=== PATIENT | female | born 1930 | race Caucasian/White ===

== ENCOUNTER 2019-01-19 16:10 | Emergency (ER) | payer MEDICARE ==
[~2019-01-19] VITALS: Ht 157.5 cm; Wt 42.0 kg
[~2019-01-19 16:10] MED LIST: AMIO200T40 PO; ATOR20TA PO; CALC-729 PO; DILT240C94 PO; LOSA50TA64 PO; MAGN400C PO; MULT1TAB74 PO; OMEG1CAP54 PO; TERI2.4P SUBCUT; WARF2.5T PO
[2019-01-19] MEDS ORDERED: phytonadione inj. 10 MG in normal saline 100ml IV soln 99 ML IV ONE (17:05)
[2019-01-19] MEDS ORDERED: HUMAN PROTHROMBIN COMPLEX PCC IV ONE (17:05)
[2019-01-19] MEDS ORDERED: LIDOcaine 1% w/epiNEPHrine 1:200,000 30ml vial IM ONE (17:20)
[2019-01-19] MEDS ORDERED: TETanus/Pertussis (Acell)/Diphther VAC/PF (Tdap-Adult) 0.5ml syringe IM ONE (17:20)
[2019-01-19 17:22] LABS: BASOPHILS # (AUTO) 0.1 X10'3 (0-0.2); BASOPHILS % (AUTO) 0.5 % (0-1); EOSINOPHILS % (AUTO) 0.1 % (0-6); HEMATOCRIT 36.5 % (35.0-45.0); HEMOGLOBIN 12.2 g/dl (12.0-16.0); LYMPHOCYTES # (AUTO) 0.3 X10'3 (1.1-4.8); MEAN CORPUSCULAR HEMOGLOBIN 31.2 PG (27.0-31.0); MEAN CORPUSCULAR HGB CONC 33.4 g/dL (33.0-36.5); MEAN CORPUSCULAR VOLUME 93.5 FL (78-98); MONOCYTES # (AUTO) 0.8 X10'3 (0-0.9); MONOCYTES % (AUTO) 6.8 % (2-12); NEUTROPHILS # (AUTO) 10.2 X10'3 (1.8-7.7); NEUTROPHILS % (AUTO) 89.6 % (42-75); PLATELET COUNT 228 X10'3 (140-440); RED CELL DISTRIBUTION WIDTH 14.4 % (11.5-14.5); WHITE BLOOD COUNT 11.4 X10'3 (4.5-11.0)
[2019-01-19 17:38] LABS: ALANINE AMINOTRANSFERASE 247 U/L (12-78); ALBUMIN 4.4 G/DL (3.4-5.0); ALBUMIN/GLOBULIN RATIO 1.2 (1.1-1.5); ALKALINE PHOSPHATASE 76 IU/L (46-116); ANION GAP 10 (8-16); ASPARTATE AMINO TRANSFERASE 159 U/L (10-37); BILIRUBIN,TOTAL 0.4 MG/DL (0.1-1.0); BLOOD UREA NITROGEN 40 MG/DL (7-18); BUN/CREATININE RATIO 13.7 (6.6-38.0); CALCIUM 9.9 MG/DL (8.5-10.1); CHLORIDE 100 MMOL/L (99-107); CREATININE 2.92 MG/DL (0.40-0.90); GLUCOSE 152 MG/DL (70-104); POTASSIUM 4.6 MMOL/L (3.5-5.1); SODIUM 136 MMOL/L (135-145); TOTAL CARBON DIOXIDE 25.6 MMOL/L (24-32); TOTAL PROTEIN 8.2 G/DL (6.4-8.2); eGFR 15 ML/MIN
[2019-01-19 17:45] LABS: PROTHROMBIN TIME 37.7 SECONDS (9.0-12.0)
[2019-01-19 17:46] LABS: PARTIAL THROMBOPLASTIN TIME 43 SECONDS (22-32)
[2019-01-19] MEDS ORDERED: ondansetron/PF 4mg/2ml inj IV ONE (18:00)
--- NOTE | 2019-01-19 18:14 | NUR ---
REPORT GIVEN AT THIS TIME TO RUBI PAREDES AT [facility] AT THIS TIME. ALL QUESTIONS AND CONCERNS ADDRESSED, PATIENT TRANSPORTED VIA EMS, NO SIGNS OF DISTRESS NOTED UPON DISCHARGE. .
[2019-01-19 18:23] VITALS: BP 168/71
== END 2019-01-19 18:33 | disposition short-term general hospital (02) ==
LOC: ER 16:11
DX: S06.5X0A Traumatic subdural hemorrhage without loss of consciousness, initial encounter (principal); S01.01XA Laceration without foreign body of scalp, initial encounter; S43.401A Unspecified sprain of right shoulder joint, initial encounter; D68.9 Coagulation defect, unspecified; I48.91 Unspecified atrial fibrillation; E78.00 Pure hypercholesterolemia, unspecified; I10 Essential (primary) hypertension; Z90.49 Acquired absence of other specified parts of digestive tract; Z90.710 Acquired absence of both cervix and uterus; Z88.8 Allergy status to other drugs, medicaments and biological substances; Z79.01 Long term (current) use of anticoagulants; Z79.899 Other long term (current) drug therapy; W01.198A Fall on same level from slipping, tripping and stumbling with subsequent striking against other object, initial encounter; Y93.89 Activity, other specified; Y92.89 Other specified places as the place of occurrence of the external cause; Y99.8 Other external cause status
CPT/HCPCS: 12001; 36415; 70450; 71045; 72125; 73030; 80053; 84484; 85025; 85610; 85730; 90471; 90715; 93005; 96365; 99291; J2405; J3430; J3490; C9132; J7030